=== PATIENT | male | born 1985 | race Caucasian/White ===

== ENCOUNTER 2020-03-04 14:53 | Emergency (ER) | payer OTHER ==
[2020-03-04 15:39] VITALS: BP 152/93; PULSE 100; RESP 18; TEMP 98.6
--- NOTE | 2020-03-04 16:17 | XR ---
EXAMINATION TYPE: XR lumbar spine 2 or 3V DATE OF EXAM: 03/04/2020 CLINICAL HISTORY: pain TECHNIQUE: Three views of the lumbar spine are submitted. COMPARISON: None. FINDINGS: There are 5 lumbar type vertebral bodies identified. The lumbar spine shows satisfactory alignment w ithout evidence of acute fracture or dislocation. Vertebral body heights are within normal limits. Disc spaces are within normal limits. The overlying soft tissue appears unremarkable. IMPRESSION: No acute fracture or dislocation is seen in the lumbar spine. ICD 10 NO FRACTURE, INITIAL EVALUATION
--- NOTE | 2020-03-04 16:21 | ED ---
Back Pain HPI - General Chief Complaint: Back Pain/Injury Stated Complaint: Back/hip pain Time Seen by Provider: 03/04/20 15:51 Source: patient, RN notes reviewed, old records reviewed Limitations: no limitations - History of Present Illness Initial Comments: 32-year-old male presents emergency room today for further concern for R hip ain and popping sensation while doing yoga 2 days ago. Pt reports he is being treated for sciatica with muscle relaxer and steroids and antiinflammatory medication. Pt reports this pain is different than sciatic distribution. Denies back or spinal pain. Pt report pain is down lateral aspect of hip and worse with ROM. - Related Data Home Medications Medication Instructions Recorded Confirmed Ibuprofen [Motrin Ib] 400 mg PO Q8H 08/19/18 08/19/18 amLODIPine [Norvasc] 5 mg PO DAILY 08/19/18 08/19/18 Previous Rx's Medication Instructions Recorded Acetaminophen-Codeine 300-30mg 1 tab PO Q6H PRN 3 Days #12 tablet 03/04/20 [Tylenol w/codeine #3] Allergies Allergy/AdvReac Type Severity Reaction Status Date / Time amoxicillin [Amoxicillin] Allergy Anaphylaxis Verified 08/19/18 15:47 latex Allergy Rash/Hives Verified 08/19/18 15:47 Review of Systems ROS Statement: Those systems with pertinent positive or pertinent negative responses have been documented in the HPI. ROS Other: All systems not noted in ROS Statement are negative. Past Medical History Past Medical History: Hypertension History of Any Multi-Drug Resistant Organisms: None Reported Past Surgical History: No Surgical Hx Reported Past Psychological History: Anxiety, Depression Smoking Status: Current every day smoker Past Alcohol Use History: Occasional Past Drug Use History: None Reported General Exam - General Exam Comments Initial Comments: 34 year old male, no distress. Limitations: no limitations General appearance: alert, in no apparent distress Head exam: Present: atraumatic, normocephalic, normal inspection Eye exam: Present: normal appearance, PERRL, EOMI. Absent: scleral icterus, conjunctival injection, periorbital swelling ENT exam: Present: normal exam, mucous membranes moist Neck exam: Present: normal inspection. Absent: tenderness, meningismus, lymphad enopathy Respiratory exam: Present: normal lung sounds bilaterally. Absent: respiratory distress, wheezes, rales, rhonchi, stridor Cardiovascular Exam: Present: regular rate, normal rhythm, normal heart sounds. Absent: systolic murmur, diastolic murmur, rubs, gallop, clicks GI/Abdominal exam: Present: soft, normal bowel sounds. Absent: distended, tenderness, guarding, rebound, rigid Extremities exam: Present: normal inspection, full ROM, normal capillary refill. Absent: tenderness, pedal edema, joint swelling, calf tenderness Right Hip exam: Present: tenderness (over lateral hip) Upper Leg exam: Present: normal inspection, full ROM Knee exam: Present: normal inspection, full ROM Lower Leg exam: Present: normal inspection, full ROM Ankle exam: Present: normal inspection, full ROM Back exam: Present: normal inspection Neurological exam: Present: alert, oriented X3, CN II-XII intact Psychiatric exam: Present: normal affect, normal mood Skin exam: Present: warm, dry, intact, normal color. Absent: rash Course Vital Signs 03/04/20 15:35 Temperature 98.6 F Pulse Rate 100 Respiratory 18 Rate Blood Pressure 152/93 O2 Sat by Pulse 100 Oximetry Medical Decision Making - Medical Decision Making 34 year old male with R hip pain and popping sensation while doing yoga 2 days ago. Pt hip xray shows possible chip fracture of acetabulum. Pt case discussed with orthopedic Kendall ANDRADE. Pt advised to follow up with orthopedic tomorrow and to have minimal weight bearing and use crutches. DC with stronger pain medication. Discussed return parameters. - Radiology Data Radiology results: report reviewed No fracture dislocation and lumbar spine. There is a tiny ossific density adjacent to the superior acetabular lip. Tiny chip fracture is difficult to exclude. Disposition Clinical Impression: Acetabular fracture Disposition: HOME SELF-CARE Condition: Good Instructions (If sedation given, give patient instructions): Acute Low Back Pain (ED) Additional Instructions: Patient should be limited weightbearing ambulate with crutches. Patient should take anti-inflammatory pain medicine as needed. Following up with oncology rep specialist tomorrow. Return to the emergency department if any alarming signs or symptoms occur. Prescriptions: Acetaminophen-Codeine 300-30mg [Tylenol w/codeine #3] 1 tab PO Q6H PRN 3 Days #12 tablet PRN Reason: Pain Is patient prescribed a controlled substance at d/c from ED?: No Referrals: Zara Abbasi MD [Primary Care Provider] - 1-2 days Eddie Beckford DO [Doctor of Osteopathic Medicine] - 1-2 days Time of Disposition: 17:06
--- NOTE | 2020-03-04 16:29 | XR ---
EXAMINATION TYPE: XR Hip RT and AP Pelvis DATE OF EXAM: 03/04/2020 CLINICAL HISTORY: Pelvic and right hip pain. TECHNIQUE: A single AP view of the pelvis is obtained. Two views of the right hip are obtained. COMPARISON: None. FINDINGS: There is no acute fracture/dislocation evident in the pelvis. The hip and sacroiliac joints appear s ymmetric and unremarkable. The overlying soft tissue appears unremarkable.Two views of right hip the re is a tiny ossific density adjacent to the superior acetabular lip. Tiny chip fracture is difficult to exclude. No focal lytic or sclerotic lesion seen in the proximal right femur. The overlying soft tissue is unremarkable. IMPRESSION: There is a tiny ossific density adjacent to the superior acetabular lip. Tiny chip fract ure is difficult to exclude.
== END 2020-03-04 17:19 | disposition home or self-care (01) ==
LOC: EC 14:53
DX: S32.401A Unspecified fracture of right acetabulum, initial encounter for closed fracture (principal); I10 Essential (primary) hypertension; F17.200 Nicotine dependence, unspecified, uncomplicated; Z79.899 Other long term (current) drug therapy; Z88.0 Allergy status to penicillin; Z91.040 Latex allergy status; X50.9XXA Other and unspecified overexertion or strenuous movements or postures, initial encounter; Y93.42 Activity, yoga
CPT/HCPCS: 72100; 73502; 99284

== ENCOUNTER → 2020-03-30 | Outpatient (CLI) | payer OTHER ==
--- NOTE | 2020-03-30 14:11 | MR ---
EXAMINATION TYPE: MR lumbar spine wo con DATE OF EXAM: 03/30/2020 COMPARISON: Lumbar spine x-ray March 04, 2020 HISTORY: Low Back Pain per order. Pain and loss of feeling into right leg and foot per patient for 4 to 6 weeks. TECHNIQUE: Multiplanar, multisequence imaging of the lumbar spine is performed without IV contrast. FINDINGS: Sagittal images of the lumbar spine show vertebral body height to remain satisfactory. Slig ht grade 1 retrolisthesis L4 on L5 redemonstrated. There is desiccation with mild to moderate disc sp liv narrowing L4-L5 level otherwise the intervertebral discs demonstrate normal heights and hydration . The conus medullaris is normal in position and signal ending at T12-L1 disc space level. The bone marrow signal intensity is within normal limits. Axial images show T12-L1, L1-L2, L2-L3, and L3-L4 levels all to appear within normal limits. Axial images at the L4-L5 level mild broad disc bulge with broad-based right paracentral/foraminal di sc protrusion component. There is annular tear. There is effacement of the anterolateral thecal sac, bilateral neural foramina but suspected encroachment on the central right L5 nerve axial image 5 when comparing with the opposite left side. Axial images at the L5-S1 level are within normal limits. Paraspinal muscle bulk is preserved. IMPRESSION: Subtle spondylolisthesis L4-L5 level. Focal disc herniation is present. Encroachment on c entral right L5 nerve is felt present likely accounting for patient's reported symptoms.
== END | disposition home or self-care (01) ==
LOC: RADMRIMAIN 13:24
PROVIDERS: ATTEND Orthopaedic Surgery
DX: M51.26 Other intervertebral disc displacement, lumbar region (principal); M43.16 Spondylolisthesis, lumbar region
CPT/HCPCS: 72148